=== PATIENT | female | born 1980 | race Caucasian/White ===

== ENCOUNTER 2016-03-11 08:34 | Emergency (ER) | payer OTHER ==
[2016-03-11 09:48] VITALS: BP 111/71
--- NOTE | 2016-03-11 09:57 | UC ---
Throat Pain/Nasal Krishna HPI - HPI Summary HPI Summary: SINUS PAIN AND PRESSURE X 7 DAYS + PND, NASAL CONGESTION, COUGH NO FEVER - History of Current Complaint Chief Complaint: UCGeneralIllness Stated Complaint: SINUS Time Seen by Provider: 03/11/16 09:36 Hx Obtained From: Patient Hx Last Menstrual Period: 03/06/16 ?: No Onset/Duration: Gradual Onset, Lasting Days - 7, Still Present Severity: Moderate Cough: Nonproductive Associated Signs & Symptoms: Positive: Sinus Discomfort, Nasal Discharge. Negative: Wheezing, Fever - Allergies/Home Medications Allergies/Adverse Reactions: Allergies Allergy/AdvReac Type Severity Reaction Status Date / Time Penicillins AdvReac Unknown Verified 10/13/15 08:16 Reaction Details PMH/Surg Hx/FS Hx/Imm Hx Endocrine History Of: Denies: Diabetes, Thyroid Disease Cardiovascular History Of: Denies: Cardiac Disorders, Hypertension Respiratory History Of: Denies: Asthma - Surgical History Surgical History: None - Family History Known Family History: Positive: None Negative: Diabetes - Social History Alcohol Use: Occasionally Substance Use Type: None Smoking Status (MU): Heavy Every Day Tobacco Smoker Type: Cigarettes Amount Used/How Often: 1/2 PPD Length of Time of Smoking/Using Tobacco: 22 Years Have You Smoked in the Last Year: Yes Household Exposure Type: Cigarettes Review of Systems Constitutional: Negative Skin: Negative Eyes: Negative ENT: Sore Throat, Ear Ache, Nasal Discharge Respiratory: Cough Cardiovascular: Negative Gastrointestinal: Negative Genitourinary: Negative All Other Systems Reviewed And Are Negative: Yes Physical Exam Triage Information Reviewed: Yes Appearance: Well-Appearing, No Pain Distress, Well-Nourished Vital Signs: Initial Vital Signs Temp 97.6 F 03/11/16 09:36 Pulse 60 03/11/16 09:36 Resp 16 03/11/16 09:36 BP 111/71 03/11/16 09:36 Pulse Ox 100 03/11/16 09:36 Vital Signs Reviewed: Yes Eyes: Positive: Conjunctiva Clear ENT: Positive: Normal ENT inspection, Hearing grossly normal, Pharyngeal erythema, Nasal congestion, Nasal drainage, TMs normal Neck: Positive: Supple, Nontender, No Lymphadenopathy Respiratory: Positive: Chest non-tender, Lungs clear, Normal breath sounds Cardiovascular: Positive: RRR, No Murmur, Pulses Normal Skin Exam: Normal Throat Pain/Nasal Course/Dx - Differential Dx/Diagnosis Provider Diagnoses: SINUSITIS Discharge - Discharge Plan Condition: Stable Disposition: HOME Prescriptions: Azithromycin TAB* [Zithromax TAB (Z-PATY) 250 mg #6 tabs] 2 tab PO .TODAY, THEN 1 DAILY #1 paty Patient Education Materials: Sinusitis (ED) Referrals: Gladys Thomas MD [Primary Care Provider] - If Needed
== END 2016-03-11 10:02 | disposition home or self-care (01) ==
LOC: UCCORT 08:34
DX: J32.9 Chronic sinusitis, unspecified (principal); Z88.0 Allergy status to penicillin; F17.210 Nicotine dependence, cigarettes, uncomplicated
CPT/HCPCS: 99212; G0463

== ENCOUNTER → 2017-01-12 10:47 | Emergency (ER) | payer OTHER ==
[~2017-01-12 10:47] MED LIST: Albuterol/Ipratropium NEB.SOL* Albuterol 2.5 MG/Ipratropium 0.5 MG 3 ML INH ONE
--- NOTE | 2017-01-12 11:25 | UC ---
FLU HPI - HPI Summary HPI Summary: 36 female presents to with complaints of productive cough, fever/chills, nausea, vomiting, ST, diarrhea, nasal congestion and feeling lousy for the past 3 days. States her son got her sick. Did not get flu shot this year. States she has been taking ibuprofen and tylenol cold/sinus with some relief, last dose around 2am. States fever was 100.3F yesterday. Nausea, vomiting diarrhea episodes yesterday. Patient is a smoker. No chest pain or difficulty breathing. No other complaints. No PMHx. - History of Current Complaint Chief Complaint: UCRespiratory Stated Complaint: FEVER,COUGH Time Seen by Provider: 01/12/17 10:57 Hx Obtained From: Patient Hx Last Menstrual Period: ~12/18/16 Onset/Duration: Sudden Onset, Lasting Days, Still Present, Worse Since Severity Currently: Mild Severity Initially: Moderate Pain Intensity: 4 Pain Scale Used: 0-10 Numeric Associated Signs & Symptoms: Positive: Fever, Cough, Sore Throat, Nasal Congestion, Headache, Vomiting, Diarrhea - Allergy/Home Medications Allergies/Adverse Reactions: Allergies Allergy/AdvReac Type Severity Reaction Status Date / Time Penicillins AdvReac Unknown Verified 01/12/17 11:03 Reaction Details Home Medications: Home Medications Ibuprofen TAB* [Advil TAB*] 400 mg PO Q6H PRN 01/12/17 [History Confirmed ] PMH/Surg Hx/FS Hx/Imm Hx - Additional Past Medical History Additional PMH: Denies DM and HTN - Surgical History Surgical History: None - Family History Known Family History: Positive: None Negative: Diabetes - Social History Alcohol Use: Occasionally Substance Use Type: None Smoking Status (MU): Heavy Every Day Tobacco Smoker Type: Cigarettes Amount Used/How Often: 1/2 PPD Length of Time of Smoking/Using Tobacco: Since Age 14 Have You Smoked in the Last Year: Yes Household Exposure Type: Cigarettes - Immunization History Most Recent Influenza Vaccination: September 2016 Review of Systems Constitutional: Fever, Chills, Fatigue ENT: Sore Throat, Nasal Discharge, Sinus Congestion Respiratory: Cough Cardiovascular: Negative Gastrointestinal: Vomiting, Diarrhea, Nausea Motor: Negative Musculoskeletal: Myalgia Neurological: Headache All Other Systems Reviewed And Are Negative: Yes Physical Exam Triage Information Reviewed: Yes Appearance: No Pain Distress, Well-Nourished, Ill-Appearing Vital Signs: Initial Vital Signs Temp 98 F 01/12/17 11:01 Pulse 70 01/12/17 11:01 Resp 16 01/12/17 11:01 BP 110/65 01/12/17 11:01 Pulse Ox 99 01/12/17 11:01 Vital Signs Reviewed: Yes Eyes: Positive: Conjunctiva Clear ENT: Positive: Normal ENT inspection, Hearing grossly normal, Pharyngeal erythema, Nasal congestion, Nasal drainage, TMs normal, Sinus tenderness, Other - post nasal drip noted. Negative: TM bulging, TM dull, Tonsillar swelling, Tonsillar exudate, Trismus, Muffled voice Dental: Positive: Cervical Lymphadenopathy. Negative: Percussion Tenderness @ Neck: Positive: Supple, Nontender, No Lymphadenopathy Respiratory: Positive: Chest non-tender, Lungs clear, Normal breath sounds, No respiratory distress, No accessory muscle use, Wheezing - diffuse, Other: - coughing throughout exam. Negative: Crackles, Rhonchi, Stridor Cardiovascular: Positive: RRR, No Murmur, Pulses Normal, Brisk Capillary Refill Abdomen Description: Positive: Nontender, Soft Bowel Sounds: Positive: Present Musculoskeletal: Positive: Strength Intact Neurological: Positive: Alert Skin Exam: Normal Re-Evaluation - Re-Evaluation First Eval Re-Evaluation Time: 12:15 Change: Improved - after duoneb, updated on lab results Flu Course/Dx - Course Course Of Treatment: rapid influneza obtained and negative. given duoneb had relief. chest xray obtained and was negative. will send home with z paty although may be viral patient's son diagnosed with pneumonia and has the same symptoms, encouraged BRAT diet. probiotics, increase fluid intake and get plenty of rest. tessalon pearls and inhaler as needed. mucinex. continue tylenol /ibu. follow up for re-check with pcp. aware of worsening signs and symptoms to watch out for. normal vitals. wheezing diffuse on PE exam. no known dirty water source containing legionella, has not traveled anywhere. azithromycin will cover legionella bacteria as well. - Differential Dx/Diagnosis Differential Diagnosis/HQI/PQRI: Bronchitis, Influenza, Pneumonia, Upper Respiratory Infection Provider Diagnoses: upper respiratory infection, bronchitis, diarrhea Discharge - Discharge Plan Condition: Stable Disposition: HOME Prescriptions: Albuterol HFA INHALER* [Ventolin HFA Inhaler*] 1 - 2 puff INH Q6H PRN #1 mdi PRN Reason: Sob/Wheezing Azithromycin TAB* [Zithromax TAB (Z-PATY) 250 mg #6 tabs] 2 tab PO .TODAY, THEN 1 DAILY #1 paty Benzonatate CAP* [Tessalon 100 MG CAP*] 100 mg PO TID #15 cap Patient Education Materials: Upper Respiratory Infection (ED), Acute Bronchitis (ED) Forms: *Work Release Referrals: Gladys Thomas MD [Primary Care Provider] - Additional Instructions: Take medication as prescribed. Also recommend mucinex OR continue tylenol cold/flu and fever. Use inhaler as needed for SOB/Wheezing. Tessalon pearls to help with coughing. [place] vapor rub on chest. Flonase for nasal congestion. BRAT diet (bananas, rice, applesauce, toast) to help with diarrhea. Increase water intake and get plenty of rest. Follow up with PCP to ensure improvement. Any new or worsening signs/symptoms please seek medical attention promptly.
[2017-01-12 11:46] VITALS: BP 110/65
--- NOTE | 2017-01-12 12:35 | RAD ---
Indication: Fever, cough. 2 views of the chest including dual energy PA views are reviewed. No mediastinal shift is noted. Heart is of normal size and configuration. Lung lilly show no pleural fluid, pneumonia or pneumothorax. IMPRESSION: No active cardiopulmonary disease is noted.
== END | disposition home or self-care (01) ==
LOC: UCCORT 10:47
DX: J06.9 Acute upper respiratory infection, unspecified (principal); J40 Bronchitis, not specified as acute or chronic; R19.7 Diarrhea, unspecified; Z72.0 Tobacco use
CPT/HCPCS: 71020; 87502; 99212; A9270-GY; G0463

== ENCOUNTER 2017-11-17 11:11 | Emergency (ER) | payer MEDICAID, OTHER ==
[2017-11-17] MEDS: Ketorolac INJ* 30 MG/ML 1 ML VIAL IM ONE (13:19)
--- NOTE | 2017-11-17 13:26 | UC ---
Complaint Female HPI - HPI Summary HPI Summary: The patient is a 37-year-old female that presents here with the onset of left pelvic pain that started up yesterday. Her symptoms yesterday were very mild. Today things got severe. Worsens with movement. Landed comfortable position. She states that she has had numerous ovarian cysts in the past. She states that this feels similar to this when she has had cyst ruptures. She has no UTI symptoms. He has no fever or chills. He denies any nausea vomiting or diarrhea. She has not taken anything for pain today. Denies any vaginal discharge or itching. She denies any history of PID. - History Of Current Complaint Chief Complaint: UCAbdominalPain Stated Complaint: LOWER LEFT ABD PAIN Time Seen by Provider: 11/17/17 13:08 Hx Obtained From: Patient Hx Last Menstrual Period: 11/03/17 Onset/Duration: Gradual Onset, Lasting Hours, Worse Since - this AM Timing: Constant Severity Initially: Mild Severity Currently: Moderate Pain Intensity: 6 - severe at times Pain Scale Used: 0-10 Numeric Character: Sharp, Cramping Aggravating Factor(s): Movement Alleviating Factor(s): Position Associated Signs And Symptoms: Positive: Back Pain. Negative: Fever, Vaginal Bleeding/Discharge, Vaginal Discharge, Nausea, Vomiting(# Of Episodes =), Genital Swelling, Genital Blisters, Retained Foregin Body (Specify) - Allergies/Home Medications Allergies/Adverse Reactions: Allergies Allergy/AdvReac Type Severity Reaction Status Date / Time Penicillins AdvReac "Doesn't Verified 11/17/17 11:51 work on me..." Home Medications: Home Medications Norgestimate-Ethinyl Estradiol [Trinessa Tablet] 1 each PO BEDTIME 11/17/17 [ History Confirmed 11/17/17] Venlafaxine TAB (NF) [Effexor TAB (NF)] 25 mg PO BEDTIME 11/17/17 [History Confirmed 11/17/17] PMH/Surg Hx/FS Hx/Imm Hx Previously Healthy: Yes - Surgical History Surgical History: None - Family History Known Family History: Positive: Hypertension Negative: Diabetes - Social History Alcohol Use: Weekly Substance Use Type: Marijuana Substance Use Comment - Amount & Last Used: Weekly & 11/11/17 Smoking Status (MU): Heavy Every Day Tobacco Smoker Type: Cigarettes Amount Used/How Often: 1/2 PPD Length of Time of Smoking/Using Tobacco: Since Age 17 Have You Smoked in the Last Year: Yes Household Exposure Type: Cigarettes - Immunization History Most Recent Influenza Vaccination: September 2016 Review of Systems Constitutional: Negative Skin: Negative Eyes: Negative ENT: Negative Respiratory: Negative Cardiovascular: Negative Gastrointestinal: Negative Genitourinary: Negative Motor: Negative Neurovascular: Negative Musculoskeletal: Negative Neurological: Negative Psychological: Negative Is Patient Immunocompromised?: No All Other Systems Reviewed And Are Negative: Yes Physical Exam Triage Information Reviewed: Yes Appearance: Well-Appearing, Pain Distress, Thin Vital Signs: Initial Vital Signs Temp 99.1 F 11/17/17 11:47 Pulse 82 11/17/17 11:47 Resp 18 11/17/17 11:47 BP 108/61 11/17/17 11:47 Pulse Ox 98 11/17/17 11:47 Vital Signs Reviewed: Yes Eyes: Positive: Conjunctiva Clear ENT: Positive: Normal ENT inspection, Hearing grossly normal. Negative: Pharyngeal erythema, Nasal congestion, Nasal drainage, Tonsillar swelling, Tonsillar exudate, Trismus, Muffled voice, Hoarse voice Neck: Positive: Supple, Nontender, No Lymphadenopathy Respiratory: Positive: Lungs clear, Normal breath sounds, No respiratory distress, No accessory muscle use Cardiovascular: Positive: RRR, No Murmur, Pulses Normal. Negative: Tachycardia , Bradycardia Abdomen Description: Positive: Nontender, No Organomegaly, Soft. Negative: CVA Tenderness (R), CVA Tenderness (L) Bowel Sounds: Positive: Present Pelvic Exam: Positive: External Exam Normal, Discharge - whitish/slightly curdy , Tender w/ Cervical Motion - mild CMT, Tender Adnexa - Left, Other - speculum and bimanual exam done by Benita Soto GAS JOCKEY per patients request Musculoskeletal: Positive: ROM Intact, No Edema Neurological: Positive: Alert Psychological Exam: Normal Skin Exam: Normal Diagnostics - Radiology No standard instances Xray Interpretation: Positive (See Comments) - #. 1.7 cm follicular cyst of the RIGHT ovary without concern. #. 2.1 cm probable hemorrhagic cyst of the LEFT ovary. This represents a very low suspicion lesion given small size. If clinically indicated this low suspicion finding could be reassessed with ultrasound in 1-2 menstrual cycles. #. Physiologic small volume of free fluid in the cul-de-sac Radiology Interpretation Completed By: Radiologist JUAN Lau Dx - Differential Dx/Diagnosis Provider Diagnoses: left hemorrhagic ovarian cyst Discharge - Sign-Out/Discharge Documenting (check all that apply): Patient Departure All imaging exams completed and their final reports reviewed: Yes - Discharge Plan Condition: Stable Disposition: HOME Prescriptions: Ibuprofen TAB* [Motrin TAB*] 600 mg PO QID #40 tab Patient Education Materials: Ovarian Cyst (ED) Forms: *Work Release Referrals: Gladys Thomas MD [Primary Care Provider] - 4 Days (if not better ) Additional Instructions: you have a hemorrhagic left ovarian cyst The radiologist has suggested you get a repeat ultrasound in 2-3 mos recheck for new or worsening symptoms - Billing Disposition and Condition Condition: STABLE Disposition: Home
--- NOTE | 2017-11-17 14:11 | RAD ---
Indication: LEFT side pelvic pain. Comparison: October 14, 2010 Technique: Transvaginal pelvic ultrasound. Report: 7.3 x 4.7 x 5.2 cm unremarkable retroverted uterus with 4.3 mm endometrium. Physiologic small volume of free fluid in the cul-de-sac. 3.8 x 2.0 x 2.3 cm RIGHT ovary with documented vascular flow is remarkable for a 1.7 cm maximum dimension unilocular grossly simple cyst consistent with a follicular cyst without concern. 3.3 x 1.8 x 2.3 cm LEFT ovary with documented vascular flow is remarkable for a 2.1 x 1.0 x 1.0 cm moderately well-circumscribed hypoechoic but not anechoic avascular lesion most suspicious for a hemorrhagic cyst. No visualized extra ovarian adnexal region lesions evident. Mildly prominent parametrial veins noted in the LEFT adnexal region. IMPRESSION: #. 1.7 cm follicular cyst of the RIGHT ovary without concern. #. 2.1 cm probable hemorrhagic cyst of the LEFT ovary. This represents a very low suspicion lesion given small size. If clinically indicated this low suspicion finding could be reassessed with ultrasound in 1-2 menstrual cycles. #. Physiologic small volume of free fluid in the cul-de-sac.
[2017-11-17 14:17] VITALS: BP 100/56
--- NOTE | 2017-11-19 08:32 | UC ---
- Progress Note Progress Note: patient found to have gardnarella vaginitis . called and left message. started flagyl one time dose of 2 gms Discharge - Sign-Out/Discharge Documenting (check all that apply): Patient Departure All imaging exams completed and their final reports reviewed: No Studies - Discharge Plan Condition: Stable Disposition: HOME Prescriptions: Ibuprofen TAB* [Motrin TAB*] 600 mg PO QID #40 tab Patient Education Materials: Ovarian Cyst (ED) Forms: *Work Release Referrals: Gladys Thomas MD [Primary Care Provider] - 4 Days (if not better ) Additional Instructions: you have a hemorrhagic left ovarian cyst The radiologist has suggested you get a repeat ultrasound in 2-3 mos recheck for new or worsening symptoms - Billing Disposition and Condition Condition: STABLE Disposition: Home
== END 2017-11-17 14:35 | disposition home or self-care (01) ==
LOC: UCCORT 11:11
DX: N83.202 Unspecified ovarian cyst, left side (principal); Z88.0 Allergy status to penicillin; F17.210 Nicotine dependence, cigarettes, uncomplicated
CPT/HCPCS: 76830; 81003; 84702; 87086; 87480; 87491; 87510; 87591; 87661; 99212; G0463; J1885

== ENCOUNTER 2018-05-20 16:58 | Emergency (ER) | payer MEDICAID, OTHER ==
--- OUTSIDE RECORDS SUMMARY | 2018-05-20 17:06 | XMS REPORT | Continuity of Care Document ---
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 Active Onset: 05/06/2017 Acute stress disorder Gladys Thomas M.D. Active Onset: 05/06/2017 Acute sinusitis Gladys Thomas M.D. Active Onset: 05/01/2010 Chondromalacia of patella Luis Manuel Farooq MD, FACS Resolved Resolved: 01/14/2015 Onset: 06/01/2010 Arthralgia of the lower leg Luis Manuel Farooq MD, FACS Resolved Resolved: 01/14/2015 Onset: 09/23/2011 Gastroesophageal reflux disease Marina Hernadez FNP Resolved Resolved: 01/14/2015 Onset: 09/23/2011 Contraception care management Wickert, Marina, [employer] Resolved Resolved: 01/14/2015 Family History Date Family Member(s) Observation Comments General Non Contributory Father 55 Mother 58 Siblings 1 Social History Type Date Description Comments Sex Unknown Marital Status Patient is Lives With Sons Lives With Boyfriend 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 Tobacco Use Start: Unknown currently smokes 1/2 Pack Daily ETOH Use Occasionally consumes alcohol Recreational Drug Use Denies Drug Use Tobacco Use Start: Unknown Heavy tobacco smoker (more than 10 cigarettes/day) Smoking Status Reviewed: 04/25/18 Heavy tobacco smoker (more than 10 cigarettes/day) Enjoy Exercising Patient enjoys exercising Tattoo/Piercing Tattoo right lower leg, lower back, between should blades Tattoo/Piercing Pierced ears Currently Active Patient is currently sexually active Age 1st [place] 15 Years Old # Partners in a Lifetime 8 # Partners in a Lifetime Has been with current partner for 2 years Allergies, Adverse Reactions, Alerts Date Description Reaction Status Severity Comments 02/24/2018 Penicillin Active states "doesn't work" 05/01/2010 NKDA Inactive 01/14/2015 NKDA Inactive Medications Medication Date Status Form Strength Qnty SIG Indications Ordering Provider Trazodone HCL 04/25 Active Tablets 50mg 30tab 1-2 by F41.1 s mouth every Kimberlee, night at [facility] bedtime as [employer], needed Ibclc Alprazolam 03/28 Active Tablets 0.5mg 90tab 1 tab every F41.1 s 8 hours as Kimberlee, osbaldo [facility] Reference [employer], #: [id number] Ibclc Tri-Linyah 02/09 Active Tablets 0.18/0.21 28tab Take One 5/0.25 s Tablet By Kimberlee, mg-35 mcg Mouth Every [facility]-, Day [employer], Ibclc Motrin Ib Active Tablets 200mg 2 prn Flonase Active 1 spray each nare prn Claritin Active Capsules 10mg 1 by mouth Unknown as needed otc Amoxicillin 05/06 Hx Tablets 500mg 20tab 1 tab by J01.90 Martha s mouth twice Gladys, - a day x 10 M.D. Venlafaxine HCL 02/02 Hx Caps ER 75mg 30cap 1 by mouth F43.0 Martha, 24HR s every day Jaziel Graham M.D. 03/28 Venlafaxine HCL 01/26 Hx Tablets ER 75mg 30tab 1 tab PO Q F43.0 Martha, 24HR s daily Jaziel Graham M.D. 02/02 Venlafaxine HCL 07/28 Hx Caps ER 75mg 30cap 1 by mouth F43.0 Martha, 24HR s every day Jaziel Graham M.D. 01/26 Claritin 06/14 Hx Capsules 10mg 30cap 1 by mouth Coby, s every day Jaziel Mohan PNP-, 05/06 [employer] Ibclc Docusate Sodium 04/07 Hx Capsules 100mg 60cap 1 cap PO K59.00 Martha s bid Jaziel Graham M.D. 10/07 Venlafaxine HCL 03/04 Hx Caps ER 37.5mg 30cap 1 by mouth F43.0 Martha, 24HR s every day Jaziel Graham M.D. 07/28 Trazodone HCL 07/09 Hx Tablets 50mg 60tab 1-2 at [place], s bedtime as Madalyn roblero MD 08/11 Citalopram 07/09 Hx Tablets 20mg 30tab 1 by mouth [place], Hydrobromide s every day Madalyn Sheriff MD 03/04 Trinessa (28) 07/07 Hx Tablets 0.18/0.21 28tab take one Coby 5/0.25 s tablet by Jaziel Mohan mg-35 mcg mouth every PNP-BC, 02/09 day [employer] Ibclc Fluticasone 02/26 Hx Suspension 50mcg/Act 1bott 1 spray to J30.9 Martha, Propionate le each Gladys, - nostril M.D. 03/04 intranasal once daily Pseudoephedrine 01/14 Hx Tablets 60mg 14tab 60 mg by J06.9 Martha s mouth every Gladys, - 6 hours as M.DGustavo 06/28 needed, 240mg/24h Guaifenesin 01/14 Hx Tablets 400mg 30tab 1 tab by J06.9 s mouth every Gladys, - 4 hours as M.DGustavo 08/11 cough Ortho Tri-Cyclen 05/28 Hx Tablets 0.18/0.21 28tab take one Montemayor, ( 5/0.25 s tablet by Madalyn - mg-35 mcg mouth every MD Tri-Sprintec 06/13 Hx Tablets 28tab Take One s Tablet By Madalyn - Mouth Every , Ibuprofen Hx Tablets 800mg 30tab 1 po q6h Unknown /0000 s prn pain - 09/02 Vicodin Hx Tablets 5-500mg 42tab 1-2 po q4h Unknown /0000 s prn - 07/13 Alprazolam Hx Tablets 1mg po q8h prn Unknown /0000 - 07/09 Medications Administered in Office Medication Date Status Form Strength Qnty SIG Indications Ordering Provider PPD Administered Injection Gladys Thomas, 5 Jessie Immunizations CPT Code Status Date Vaccine Lot # [id number] Given 12/04/2012 Tdap injection 68398 Given 12/04/2012 flu vaccination 38281 Given 11/04/2012 flu vaccination 10477 Given 11/04/2009 flu vaccination Vital Signs Date Vital Result Comment 04/25/2018 4:46pm BP Systolic 114 mmHg BP Diastolic 68 mmHg Body Temperature 98.0 F Heart Rate 72 /min Respiratory Rate 17 /min Height 65 inches 5'5" Weight 163.00 lb BMI (Body Mass Index) 27.1 kg/m2 BSA (Body Surface Area) 1.81 m2 [place] body weight in kilograms 57 kg 03/28/2018 3:49pm BP Systolic Sitting Right Arm 122 mmHg BP Diastolic Sitting Right Arm 76 mmHg Body Temperature 97.1 F Heart Rate 88 /min Respiratory Rate 18 /min Height 65 inches 5'5" Weight 155.00 lb BMI (Body Mass Index) 25.8 kg/m2 BSA (Body Surface Area) 1.78 m2 [place] body weight in kilograms 57 kg O2 % BldC Oximetry 98 % 02/24/2018 1:22pm BP Systolic Sitting Right Arm 122 mmHg BP Diastolic Sitting Right Arm 62 mmHg Body Temperature 99.1 F Heart Rate 73 /min Weight 158.38 lb O2 % BldC Oximetry 98 % 11/17/2017 12:00am BP Systolic 100 mmHg BP Diastolic 56 mmHg Body Temperature 98.1 F Heart Rate 58 /min Respiratory Rate 14 /min Height 65 inches Weight 130.00 lb BMI (Body Mass Index) 21.6 kg/m2 O2 % BldC Oximetry 99 % 10/07/2017 3:17pm BP Systolic Sitting Right Arm 116 mmHg BP Diastolic Sitting Right Arm 58 mmHg Body Temperature 97.4 F Heart Rate 70 /min Weight 156.12 lb O2 % BldC Oximetry 9611 % 05/06/2017 10:33am BP Systolic 104 mmHg BP Diastolic 64 mmHg Body Temperature 97.0 F Heart Rate 76 /min Height 66 inches 5'6" Weight 167.00 lb BMI (Body Mass Index) 27.0 kg/m2 BSA (Body Surface Area) 1.85 m2 [place] body weight in kilograms 59 kg 01/26/2017 11:15am BP Systolic Sitting Left Arm 114 mmHg BP Diastolic Sitting Left Arm 72 mmHg Body Temperature 98.0 F Height 66 inches 5'6" Weight 159.25 lb BMI (Body Mass Index) 25.7 kg/m2 BSA (Body Surface Area) 1.82 m2 [place] body weight in kilograms 59 kg 08/10/2016 3:44pm BP Systolic 104 mmHg BP Diastolic 61 mmHg Body Temperature 98.1 F Heart Rate 64 /min Height 66 inches 5'6" Weight 163.00 lb BMI (Body Mass Index) 26.3 kg/m2 BSA (Body Surface Area) 1.83 m2 [place] body weight in kilograms 59 kg 07/28/2016 3:40pm BP Systolic Sitting Left Arm 120 mmHg BP Diastolic Sitting Left Arm 74 mmHg Height 66 inches 5'6" Weight 165.50 lb BMI (Body Mass Index) 26.7 kg/m2 BSA (Body Surface Area) 1.85 m2 [place] body weight in kilograms 59 kg 04/07/2016 11:17am BP Systolic Sitting Left Arm 124 mmHg BP Diastolic Sitting Left Arm 76 mmHg Height 66 inches 5'6" Weight 164.25 lb BMI (Body Mass Index) 26.5 kg/m2 BSA (Body Surface Area) 1.84 m2 [place] body weight in kilograms 59 kg Last Menstrual Period [id number] 03/04/2016 2:34pm BP Systolic Sitting Left Arm 122 mmHg BP Diastolic Sitting Left Arm 70 mmHg Height 66 inches 5'6" Weight 166.00 lb BMI (Body Mass Index) 26.8 kg/m2 BSA (Body Surface Area) 1.85 m2 [place] body weight in kilograms 59 kg 08/12/2015 1:16pm BP Systolic Sitting Left Arm 102 mmHg BP Diastolic Sitting Left Arm 64 mmHg Height 66 inches 5'6" Weight 158.56 lb BMI (Body Mass Index) 25.6 kg/m2 BSA (Body Surface Area) 1.81 m2 [place] body weight in kilograms 59 kg 07/10/2015 3:37pm BP Systolic Sitting Left Arm 106 mmHg BP Diastolic Sitting Left Arm 70 mmHg Height 66 inches 5'6" Weight 160.00 lb BMI (Body Mass Index) 25.8 kg/m2 BSA (Body Surface Area) 1.82 m2 [place] body weight in kilograms 59 kg Last Menstrual Period [id number] 02/26/2015 3:26pm BP Systolic 108 mmHg BP Diastolic 68 mmHg Body Temperature 98.3 F Height 66 inches 5'6" Weight 151.00 lb BMI (Body Mass Index) 24.4 kg/m2 BSA (Body Surface Area) 1.77 m2 01/14/2015 10:10am BP Systolic 108 mmHg BP Diastolic 62 mmHg Body Temperature 97.8 F Height 66 inches 5'6" Weight 148.38 lb BMI (Body Mass Index) 23.9 kg/m2 BSA (Body Surface Area) 1.76 m2 Last Menstrual Period [id number] 12/19/2013 2:10pm BP Systolic 106 mmHg BP Diastolic 64 mmHg Height 66 inches 5'6" Weight 158.00 lb 09/27/2013 1:28pm BP Systolic 106 mmHg BP Diastolic 68 mmHg Height 66 inches 5'6" Weight 161.00 lb 07/26/2013 10:51am BP Systolic 90 mmHg BP Diastolic 62 mmHg Heart Rate 68 /min Height 66 inches 5'6" Weight 160.00 lb 06/25/2013 6:53pm BP Systolic 114 mmHg BP Diastolic 70 mmHg Height 66 inches 5'6" Weight 161.00 lb 06/13/2013 6:35pm BP Systolic 106 mmHg BP Diastolic 70 mmHg Height 66 inches 5'6" Weight 169.00 lb 02/22/2013 7:23pm BP Systolic 102 mmHg BP Diastolic 70 mmHg Height 66 inches 5'6" Weight 176.00 lb 05/08/2012 9:54am BP Systolic 98 mmHg BP Diastolic 70 mmHg Height 66 inches 5'6" Weight 155.00 lb 04/10/2012 10:08am BP Systolic 86 mmHg BP Diastolic 58 mmHg Height 66 inches 5'6" Weight 155.00 lb 03/16/2012 11:53am BP Systolic 98 mmHg BP Diastolic 66 mmHg Height 66 inches 5'6" Weight 149.00 lb 09/23/2011 3:49pm BP Systolic 112 mmHg BP Diastolic 62 mmHg Body Temperature 98.0 F Height 66 inches 5'6" Weight 144.00 lb 03/19/2011 2:11pm BP Systolic 94 mmHg BP Diastolic 66 mmHg Heart Rate 76 /min Height 66 inches 5'6" Weight 141.00 lb 12/11/2010 2:24pm BP Systolic Sitting Left Arm 99 mmHg BP Diastolic Sitting Left Arm 66 mmHg Heart Rate 81 /min Respiratory Rate 12 /min Last Menstrual Period [id number] 05/01/2010 9:42am Height 66 inches 5'6" Weight 142.00 lb BMI (Body Mass Index) 22.9 kg/m2 Results Test Date Facility Test Result H/L Range Note Laboratory test [facility] Gardnerella/Yeas SEE RESULT 1, 2 finding 7 [phone] t: Vaginal Dna BELOW GC/Chlamydia [facility] Chlamydia Negative Negative Amplified Rna 8 [phone] trachomatis Rna Neisseria gonorrhoeae (GC) Rna Negative Negative Laboratory test 11/17/2017 [facility] Trichomonas Negative Negative 3 finding [phone] vaginalis Rna Laboratory test 11/17/2017 [facility] Poc , Negative Negative 4 finding [phone] Urine Poc Urinalysis 11/17/2017 [facility] Poc Glucose, Negative Negative [phone] Urine Poc Bilirubin, Urine 1+ Abnormal Negative Poc Ketone, Urine Trace Abnormal Negative Poc Specific [place], Urine 1.020 N 1.010-1.030 Poc Blood, Urine Negative Negative Poc pH, Urine 7.5 N 5-9 Poc Protein, Urine 1+ Abnormal Negative Poc Urobilinogen, Urine 1.0 Negative Poc Nitrite, Urine Negative Negative Poc Leukocytes, Urine Trace Abnormal Negative Poc Color, Urine Dark yellow Poc Clarity, Urine Slightly Cloudy 5 Laboratory Studies 11/17/2017 [facility] Import Bedside Urine 1.020 1.010- 1.030 Specific [place] (Lab Bedside Urine Urobilinogen (Lab) 1.0 Bedside Urine pH (Lab) 7.5 5-9 Urine Culture And 11/17/2017 [facility] Urine SEE RESULT 6, 7 Sensitivities [phone] Culture BELOW Laboratory test 06/01/2017 [facility] Troponin-I < 0.015 8, [address] ng/mL [place], [place] [id number] [phone] Rapid Influenza A 01/12/2017 [facility] Influenza A NEGATIVE Negative 10 & B Molecular [phone] Molecular Influenza B Molecular NEGATIVE Negative CBC W/Automated Diff 07/10/2015 [facility] White Blood 7.7 K/uL 3.1-10.[address] [place] [address] [phone] Red Blood Count 4.41 M/uL 3.90-5.40 Hemoglobin 14.1 gm/dL 11.6-15.8 Hematocrit 41.2 % 36.0-46.1 Mean Cell Volume 93.4 fl 80.9-99.0 Mean Corpuscular HGB 32.0 pg 25.9-32.7 Mean Corpuscular HGB Conc 34.2 g/dL 30.8-34.3 Platelet Count 310 K/uL 155-360 Red Cell Distri Width SD 41.3 fl 3-47 Red Cell Distri Width %CV 12.4 % 11.7-14.4 Mean Platelet Volume 10.4 fL 8.9-12.4 Neut% 58.9 % 40.4-72.8 Lymph % 31.8 % 17.0-46.1 [place] % 8.2 % 4.3-13.2 Eo% 0.7 % 0.0-6.6 Bas% 0.4 % 0.0-1.1 Neut# 4.51 K/uL 1.8-7.0 Lymph # 2.43 K/uL 1.8-7.0 [place] # 0.63 K/uL 0.3-0.9 Eos # 0.05 K/uL 0.0-0.5 Baso # 0.03 K/uL 0.0-0.1 Laboratory test 07/10/2015 [facility] TSH Reflex 0.59 uIU/mL 0.30-4.[address] FT4 and/or [place] [address] FT3 [phone] Basic Metabolic 07/10/2015 [facility] Glucose 72 mg/dL Low 74-[address] [place] [address] [phone] BUN 13 mg/dL 7-18 Creatinine 0.7 mg/dL 0.6-1.3 Glom Filtration Rate, Estimate >60 mL/min >60 If >60 mL/min >60 12 BUN/Creat 18.5 ratio Sodium 139 mmol/L 136-145 Potassium 3.6 mmol/L 3.5-5.1 Chloride 104 mmol/L 98-107 Carbon Dioxide 27 mmol/L 21-32 Anion Gap 8 mEq/L 8-16 Calcium 9.0 mg/dL 8.5-10.1 Rapid 05/10/2015 [facility] Influenza A POSITIVE Abnormal Negative 13 Influenza A & [phone] Molecular B Molecular Influenza B Molecular NEGATIVE N Negative Laboratory test 02/26/2015 [facility] Cytopathology Results on [address] Cervix/[place] [address] [phone] Laboratory test 11/12/2014 [facility] Rapid Influenza A SEE RESULT 15 finding [phone] & B Antigen BELOW Laboratory test 01/22/2014 [facility]N/[facility] Import Bas% 0.4 % 0.0-1 finding .1 Baso # 0.03 K/uL 0.0-0.1 CK 74 U/L 26-192 Eo% 0.5 % 0.0-6.6 Eos # 0.04 K/uL 0.0-0.5 Hematocrit 40.8 % 36.0-46.1 Hemoglobin 14.5 gm/dL 11.6-15.8 Lymph # 2.49 K/uL 0.8-3.4 Lymph % 29.3 % 17.0-46.1 Mean Cell Volume 93.2 fl 80.9-99.0 Mean Corpuscular HGB 33.1 pg High 25.9-32.7 Mean Corpuscular HGB Conc 35.5 g/dL High 30.8-34.3 Mean Platelet Volume 9.9 fL 8.9-12.4 [place] # 0.45 K/uL 0.3-0.9 [place] % 5.3 % 4.3-13.2 Neut# 5.49 K/uL 1.0-7.0 Neut% 64.5 % 40.4-72.8 Platelet Count 304 K/uL 155-360 Red Blood Count 4.38 M/uL 3.90-5.40 Red Cell Distri Width %CV 11.8 % 11.7-14.4 Red Cell Distri Width SD 39.6 fl 3-47 Troponin-I < 0.02 ng/mL 16 White Blood Count 8.5 K/uL 3.1-10.7 Comprehensive Metabolic Panel 01/22/2014 [facility] Import Alb/Glob 1.0 ratio Albumin 3.5 g/dL 3.4-5.0 Alkaline Phosphatase 51 U/L 45-117 Anion Gap 11 mEq/L 8-16 BUN 12 mg/dL 7-18 BUN/Creat 17.1 ratio Bilirubin,Total 0.3 mg/dL 0.2-1.0 Calcium 8.9 mg/dL 8.5-10.1 Carbon Dioxide 24 mmol/L 21-32 Chloride 108 mmol/L High 98-107 Creatinine 0.7 mg/dL 0.6-1.3 Globulin 3.5 g/dL 1.9-4.3 Glom Filtration Rate, Estimate >60 mL/min >60 Glucose 83 mg/dL 74-106 If >60 mL/min >60 17 Potassium 3.3 mmol/L Low 3.5-5.1 SGPT/Alt 18 U/L 12-78 Sgot/Ast 9 U/L Low 15-37 18 Sodium 140 mmol/L 136-145 Total Protein 7.0 g/dL 6.4-8.2 Chlamydia/GC Pati 09/27/2013 [facility] Import Chlamydia Negative Negative Trachomatis, Pati Neisseria Gonorrhoeae, Pati Negative Negative Please note: See Note 19 Laboratory test 09/27/2013 [facility] Import ThinPrep Pap: See Note 20 finding Cervix/Endocx Laboratory test 08/07/2013 [facility] Import TSH (Thyroid 0.43 IU/mL 0.34- 5. finding Stimulating Horm) 60 Vitamin B12 456 pg/mL 180-914 21 CBC Auto Diff 08/07/2013 [facility] Import Abs Basophils 0 10^3/uL 0-0.2 Abs Eosinophils 0.1 10^3/uL 0-0.6 Abs Lymphocytes 1.9 10^3/uL 1.0-4.8 Abs Monocytes 0.4 10^3/uL 0-0.8 Abs Neutrophils 4.5 10^3/uL 1.5-7.7 Abs Nucleated RBC 0.01 10^3/uL Basophil % 0.6 % 0-2 Eosinophil % 1.5 % 0-6 Granulocyte % 64.7 % 38-83 Hematocrit 41 % 35-47 Hemoglobin 13.9 g/dL 12.0-16.0 Lymphocyte % 27.6 % 25-47 Mean Corpuscular HGB Conc 34 g/dL 31-36 Mean Corpuscular Hemoglobin 32 pg High 27-31 Mean Corpuscular Volume 94 fL 80-97 Mean Platelet Volume 8 um3 7.4-10.4 Monocyte % 5.6 % 1-9 Nucleated Red Blood Cells % 0.1 Platelet Count 274 10^3/uL 150-450 Red Blood Count 4.32 10^6/uL 4.0-5.4 Red Cell Distribution Width 13 % 10.5-15 White Blood Count 7.0 10^3/uL 4.8-10.8 Comp Metabolic Panel 08/07/2013 [facility] Import Albumin 4.3 g/dL 3.2-5.2 Albumin/Globulin Ratio 1.9 1-3 Alkaline Phosphatase 44 U/L 34-104 Alt 13 U/L 7-52 Anion Gap 5 mmol/L 2-11 Ast 13 U/L 13-39 BUN/Creatinine Ratio 20.0 8-20 Blood Urea Nitrogen 16 mg/dL 6-24 Calcium 9.3 mg/dL 8.6-10.3 Chloride 106 mmol/L 101-111 Co2 Carbon Dioxide 28 mmol/L 22-32 Creatinine 0.80 mg/dL 0.51-0.95 Egfr 105.6 >60 22 Egfr Non- 82.1 >60 Globulin 2.3 g/dL 2-4 Glucose 80 mg/dL 70-100 Potassium 3.8 mmol/L 3.7-5.6 Sodium 139 mmol/L 133-145 Total Bilirubin 0.40 mg/dL 0.2-1.0 Total Protein 6.6 g/dL 6.4-8.9 Laboratory test finding 06/16/2013 N2N/[facility]D Import Bas% 0.3 % 0.0-1.1 Baso # 0.03 K/uL 0.0-0.1 Eo% 0.5 % 0.0-6.6 Eos # 0.05 K/uL 0.0-0.5 Free T4 0.96 ng/dL 0.71-1.85 Hematocrit 41.1 % 36.0-46.1 Hemoglobin 14.6 gm/dL 11.6-15.8 Lymph # 2.29 K/uL 0.8-3.4 Lymph % 22.1 % 17.0-46.1 Mean Cell Volume 92.8 fl 80.9-99.0 Mean Corpuscular HGB 33.0 pg High 25.9-32.7 Mean Corpuscular HGB Conc 35.5 g/dL High 30.8-34.3 Mean Platelet Volume 9.9 fL 8.9-12.4 [place] # 0.86 K/uL 0.3-0.9 [place] % 8.3 % 4.3-13.2 Neut# 7.11 K/uL High 1.0-7.0 Neut% 68.8 % 40.4-72.8 Platelet Count 234 K/uL 155-360 Rapid Plasma Reagin Nonreactive Nonreactive 23 Red Blood Count 4.43 M/uL 3.90-5.40 Red Cell Distri Width %CV 11.8 % 11.7-14.4 Red Cell Distri Width SD 39.3 fl 3-47 Thyroid Stim Hormone 1.59 uIU/mL 0.49-4.67 White Blood Count 10.3 K/uL 3.1-10.7 Comprehensive Metabolic Panel 06/16/2013 [facility]N/[facility] Import Alb/Glob 1.3 ratio Albumin 4.1 g/dL 3.5-5.0 Alkaline Phosphatase 65 U/L 50-136 Anion Gap 12 mEq/L 8-16 BUN 15 mg/dL 5-23 BUN/Creat 21.4 ratio Bilirubin,Total 0.5 mg/dL 0.2-1.2 Calcium 8.9 mg/dL 8.5-10.1 Carbon Dioxide 25 mEq/L 18-29 Chloride 107 mmol/L 98-107 Creatinine 0.7 mg/dL 0.5-1.4 Globulin 3.1 g/dL 1.9-4.3 Glom Filtration Rate, Estimate >60 mL/min >60 Glucose 86 mg/dL 76-115 If >60 mL/min >60 24 Potassium 3.6 mmol/L 3.5-5.1 SGPT/Alt 21 U/L Low 30-65 Sgot/Ast 14 U/L Low 16-40 Sodium 140 mmol/L 136-145 Total Protein 7.2 g/dL 6.3-8.0 LDL Cholesterol Profile 06/16/2013 [facility] Import Cholesterol 143 mg/dL 120-200 HDL Cholesterol 66 mg/dL 29-83 LDL-Cholesterol 68 mg/dL 62-185 Triglycerides 45 mg/dL 16-231 Laboratory test 06/16/2013 [facility] Import Amphetamines (Urine) Negative finding Barbiturates (Urine) Negative Benzodiazepines (Urine) Negative Cannabinoids (Urine) Positive High Cocaine Metabolite (Urine) Negative Methadone (Urine) Negative Opiates (Urine) Negative Please Note # 25 Urine Cutoffs * 26 Laboratory test 06/16/2013 [facility] Import Ethyl Alcohol < 3.0 mg/dL 0.0 - finding Laboratory test 01/08/2013 [facility] Import Rapid Plasma Nonreactive 27 finding Reagin Nonreactive Type And Screen See Note 28 CBC 01/08/2013 [facility] Import Hematocrit 41.0 % 36.0-46.1 Hemoglobin 14.5 gm/dL 11.6-15.8 Mean Cell Volume 92.1 fl 80.9-99.0 Mean Corpuscular HGB 32.6 pg 25.9-32.7 Mean Corpuscular HGB Conc 35.4 g/dL High 30.8-34.3 Mean Platelet Volume 10.0 fL 8.9-12.4 Platelet Count 307 K/uL 155-360 Red Blood Count 4.45 M/uL 3.90-5.40 Red Cell Distri Width %CV 13.7 % 11.7-14.4 White Blood Count 14.9 K/uL High 3.1-10.7 Type And Screen 01/08/2013 [facility] Import Antibody Screen Negative Patient Blood Type O Pos Laboratory test 12/04/2012 [facility] Import Vaginal Strep See Note 29 finding Screen Chlamydia/GC Pati 12/04/2012 [facility] Import Chlamydia Negative Negative Trachomatis, Pati Neisseria Gonorrhoeae, Pati Negative Negative Please note: See Note 30 Laboratory test 10/19/2012 N2N/[facility] Import 3 Hour GTT See Note 31 finding Laboratory test 10/18/2012 [facility] Import Culture If Indicated See Note 32 finding Comment Urine Culture See Note 33 Urine Screen See Note 34 Urinalysis With 10/18/2012 [facility] Import Urine Bacteria Moderate None High Microscopic Seen Urine Bilirubin - Dipstick Negative Negative Urine Blood Negative Negative Urine Calcium Oxalate Crystals Few None Seen Urine Clarity Clear Clear Urine Color Yellow Yellow Urine Epithelial Cells Few None Seen /lpf Urine Glucose - Dipstick Negative mg/dL Negative Urine Ketone Negative mg/dL Negative Urine Leuk Esterase Negative Negative Urine Nitrite - Dipstick Positive High Negative Urine PH 6.0 Low 6.5-7.5 Urine Protein - Dipstick Negative mg/dL Negative Urine RBC None Seen rbc/hpf 0-7 Urine Specific [place] 1.020 1.010-1.030 Urine Urobilinogen - Dipstick 0.2 E.U./dL 0.2-1.0 Urine WBC 0-2 wbc/hpf 0-7 Laboratory test 10/09/2012 N[facility]N/[facility] Import Glucose 1 HR Post 171 mg/dL High 70-160 finding Prandial Hemoglobin/Hematac 10/09/2012 [facility] Import Hematocrit 37 % 35-47 rit Hemoglobin 13.0 g/dL 12.0-16.0 Urine Screen 08/18/2012 [facility] Import Urine Bilirubin - Negative Negative Dipstick Urine Blood Negative Negative Urine Clarity Clear Clear Urine Color Straw Yellow Urine Glucose - Dipstick Negative mg/dL Negative Urine Ketone Negative mg/dL Negative Urine Leuk Esterase Negative Negative Urine Nitrite - Dipstick Negative Negative Urine PH 6.0 Low 6.5-7.5 Urine Protein - Dipstick Negative mg/dL Negative Urine Specific [place] <=1.005 Low 1.010-1.030 Urine Urobilinogen - Dipstick 0.2 E.U./dL 0.2-1.0 Laboratory test 08/07/2012 [facility] Import [employer] Ref#[id number] 35 finding Profile Laboratory test 08/02/2012 N[facility]N/[facility] Import Urine HCG Positive High Negative finding (Qualitative) Urine Screen 08/02/2012 [facility] Import Urine Negative Negative Bilirubin - Dipstick Urine Blood Negative Negative Urine Clarity SL Cloudy Clear Urine Color Yellow Yellow Urine Glucose - Dipstick Negative mg/dL Negative Urine Ketone Negative mg/dL Negative Urine Leuk Esterase Negative Negative Urine Nitrite - Dipstick Negative Negative Urine PH 5.5 Low 6.5-7.5 Urine Protein - Dipstick Negative mg/dL Negative Urine Specific [place] >=1.030 1.010-1.030 Urine Urobilinogen - Dipstick 0.2 E.U./dL 0.2-1.0 Laboratory test finding 08/02/2012 [facility] Import Lipase 91 U/L 28-380 CBC 08/02/2012 [facility] Import Hematocrit 38.6 % 36.0-46.1 Hemoglobin 13.5 gm/dL 11.6-15.8 Mean Cell Volume 91.3 fl 80.9-99.0 Mean Corpuscular HGB 31.9 pg 25.9-32.7 Mean Corpuscular HGB Conc 35.0 g/dL High 30.8-34.3 Mean Platelet Volume 9.3 fL 8.9-12.4 Platelet Count 312 K/uL 155-360 Red Blood Count 4.23 M/uL 3.90-5.40 Red Cell Distri Width %CV 12.7 % 11.7-14.4 White Blood Count 11.9 K/uL High 3.1-10.7 Comprehensive Metabolic Panel 08/02/2012 [facility] Import Alb/Glob 0.9 ratio Albumin 3.1 g/dL Low 3.5-5.0 Alkaline Phosphatase 60 U/L 50-136 Anion Gap 11 mEq/L 8-16 BUN 10 mg/dL 5-23 BUN/Creat 16.6 ratio Bilirubin,Total 0.3 mg/dL 0.2-1.2 Calcium 9.1 mg/dL 8.5-10.1 Carbon Dioxide 25 mEq/L 18-29 Chloride 106 mmol/L 98-107 Creatinine 0.6 mg/dL 0.5-1.4 Globulin 3.5 g/dL 1.9-4.3 Glom Filtration Rate, Estimate >60 mL/min >60 Glucose 82 mg/dL 76-115 If >60 mL/min >60 36 Potassium 3.4 mmol/L Low 3.5-5.1 SGPT/Alt 23 U/L Low 30-65 Sgot/Ast 11 U/L Low 16-40 Sodium 139 mmol/L 136-145 Total Protein 6.6 g/dL 6.3-8.0 Laboratory test 06/25/2012 N2N/[facility] Import HCG, Quant 71764.0 mIU/mL 37 finding Urine Screen 06/25/2012 N2N/[facility] Import Urine Bilirubin Negative Negative - Dipstick Urine Blood Negative Negative Urine Clarity Clear Clear Urine Color Yellow Yellow Urine Glucose - Dipstick Negative mg/dL Negative Urine Ketone Negative mg/dL Negative Urine Leuk Esterase Negative Negative Urine Nitrite - Dipstick Negative Negative Urine PH 6.0 Low 6.5-7.5 Urine Protein - Dipstick Negative mg/dL Negative Urine Specific [place] >=1.030 1.010-1.030 Urine Urobilinogen - Dipstick 0.2 E.U./dL 0.2-1.0 Laboratory test finding 06/06/2012 N2N/CCD Import Antibody Detection See Note 38 Bas% 0.3 % 0.0-1.1 Baso # 0.03 K/uL 0.0-0.1 Eo% 0.5 % 0.0-6.6 Eos # 0.06 K/uL 0.0-0.5 Hematocrit 39.2 % 36.0-46.1 Hemoglobin 14.0 gm/dL 11.6-15.8 Hepatitis B Surface Antigen Nonreactive Nonreactive 39 Lead,Blood (Adult) 1 g/dL 0-19 40 Lymph # 2.33 K/uL 0.8-3.4 Lymph % 19.6 % 17.0-46.1 Mean Cell Volume 90.7 fl 80.9-99.0 Mean Corpuscular HGB 32.4 pg 25.9-32.7 Mean Corpuscular HGB Conc 35.7 g/dL High 30.8-34.3 Mean Platelet Volume 9.9 fL 8.9-12.4 [place] # 0.60 K/uL 0.3-0.9 [place] % 5.1 % 4.3-13.2 Neut# 8.84 K/uL High 1.0-7.0 Neut% 74.5 % High 40.4-72.8 Platelet Count 326 K/uL 155-360 Rapid Plasma Reagin Nonreactive Nonreactive 41 Red Blood Count 4.32 M/uL 3.90-5.40 Red Cell Distri Width %CV 11.9 % 11.7-14.4 Red Cell Distri Width SD 38.4 fl 3-47 Rubella IgG Antibody Reactive Reactive Urine Culture See Note 42 Varicella-Zoster Virus IgG Ab 1.67 Immune>1.09i 43 White Blood Count 11.9 K/uL High 3.1-10.7 Dna Probe N. Gono + 06/06/2012 N2N/CCD Import Dna Probe For See Note 44 C. Trach. Chlamydia Trac. Dna Probe For N. Gonorrhoeae See Note 45 Genital Culture W/ Gram 06/06/2012 N2N/CCD Import Genital Culture See Note 46 Stain Gram Stain See Note 47 Laboratory test 06/06/2012 N2N/CCD Import HPV High Risk Negative Negative 48 finding ThinPrep Pap: Cervix/Endocx See Note 49 Type And 06/06/2012 N2N/CCD Import Antibody Screen Negative Negative Screen Patient Blood Type O Pos Comp Metabolic Panel 03/16/2012 N2N/CCD Import Albumin 4.5 g/dL 3.6-5.4 Albumin/Globulin Ratio 1.7 1-3 Alkaline Phosphatase 58 U/L 30-110 Alt 18 U/L 14-54 Anion Gap 9.0 mmol/L 2-11 Ast 19 U/L 12-42 BUN/Creatinine Ratio 12.2 8-20 Blood Urea Nitrogen 11 mg/dL 6-24 Calcium 10.1 mg/dL High 8.1-9.9 Chloride 103 mmol/L 101-111 Co2 Carbon Dioxide 30.0 mmol/L 22-32 Creatinine 0.90 mg/dL 0.50-1.40 Egfr 92.7 >60 50 Egfr Non- 72.1 >60 Globulin 2.6 g/dL 2-4 Glucose 76 mg/dL 70-100 Potassium 3.9 mmol/L 3.5-5.0 Sodium 142 mmol/L 133-145 Total Bilirubin 0.5 mg/dL 0.4-1.5 Total Protein 7.1 g/dL 6.2-8.1 Lipid Profile 03/16/2012 N2N/CCD Import Cholesterol 199 mg/dL Less than (Trig/Chol/HDL) 200 Cholesterol/HDL Ratio 2.7 Average 1-4.44 HDL Cholesterol 74 mg/dL High 40-60 51 LDL Cholesterol 108.4 mg/dL High Less Than 100 52 Triglycerides 83 mg/dL 40-200 CBC Auto Diff 03/16/2012 N2N/CCD Import Abs Basophils 0.1 10^3/uL 0-0.2 Abs Eosinophils 0.1 10^3/uL 0-0.6 Abs Lymphocytes 2.3 10^3/uL 1.0-4.8 Abs Monocytes 0.5 10^3/uL 0-0.8 Abs Neutrophils 4.1 10^3/uL 1.5-7.7 Abs Nucleated RBC 0 10^3/uL Basophil % 0.7 % 0-2 Eosinophil % 1.2 % 0-6 Granulocyte % 57.6 % 38-83 Hematocrit 44 % 35-47 Hemoglobin 15.1 g/dL 12.0-16.0 Lymphocyte % 33.0 % 25-47 Mean Corpuscular HGB Conc 35 g/dL 31-36 Mean Corpuscular Hemoglobin 33 pg High 27-31 Mean Corpuscular Volume 95 fL 80-97 Mean Platelet Volume 8 um3 7.4-10.4 Monocyte % 7.5 % 1-9 Nucleated Red Blood Cells % 0 Platelet Count 257 10^3/uL 150-450 Red Blood Count 4.61 10^6/uL 4.0-5.4 Red Cell Distribution Width 13 % 10.5-15 White Blood Count 7.1 10^3/uL 4.8-10.8 Laboratory test 03/16/2012 N2N/[employer] Import TSH (Thyroid 0.70 miu/mL 0.34- 5.60 finding Stimulating Horm) Laboratory test 02/08/2012 N2N/[employer] Import Bas% 0.2 % 0.0-1.1 finding Baso # 0.02 K/uL 0.0-0.1 Eo% 0.6 % 0.0-6.6 Eos # 0.06 K/uL 0.0-0.5 Hematocrit 41.2 % 36.0-46.1 Hemoglobin 14.4 gm/dL 11.6-15.8 Lymph # 2.35 K/uL 0.8-3.4 Lymph % 24.7 % 17.0-46.1 Mean Cell Volume 92.0 fl 80.9-99.0 Mean Corpuscular HGB 32.1 pg 25.9-32.7 Mean Corpuscular HGB Conc 35.0 g/dL High 30.8-34.3 Mean Platelet Volume 10.0 fL 8.9-12.4 [place] # 0.65 K/uL 0.3-0.9 [place] % 6.8 % 4.3-13.2 Neut# 6.45 K/uL 1.0-7.0 Neut% 67.7 % 40.4-72.8 Platelet Count 275 K/uL 155-360 Red Blood Count 4.48 M/uL 3.90-5.40 Red Cell Distri Width %CV 12.0 % 11.7-14.4 Red Cell Distri Width SD 39.6 fl 3-47 Urine HCG (Qualitative) Negative Negative 53 White Blood Count 9.5 K/uL 3.1-10.7 Comprehensive Metabolic Panel 02/08/2012 N2N/CCD Import Alb/Glob 1.2 ratio Albumin 3.9 g/dL 3.5-5.0 Alkaline Phosphatase 55 U/L 50-136 Anion Gap 10 mEq/L 8-16 BUN 16 mg/dL 5-23 BUN/Creat 20.0 ratio Bilirubin,Total 0.2 mg/dL 0.2-1.2 Calcium 8.8 mg/dL 8.5-10.1 Carbon Dioxide 25 mEq/L 18-29 Chloride 110 mmol/L High 98-107 Creatinine 0.8 mg/dL 0.5-1.4 Globulin 3.3 g/dL 1.9-4.3 Glom Filtration Rate, Estimate >60 mL/min >60 Glucose 80 mg/dL 76-115 If >60 mL/min >60 54 Potassium 3.9 mmol/L 3.5-5.1 SGPT/Alt 22 U/L Low 30-65 Sgot/Ast 11 U/L Low 16-40 Sodium 141 mmol/L 136-145 Total Protein 7.2 g/dL 6.3-8.0 Urine Screen 02/08/2012 N2N/CCD Import Urine Bilirubin - Negative Negative Dipstick Urine Blood Negative Negative Urine Clarity Clear Clear Urine Color Yellow Yellow Urine Glucose - Dipstick Negative mg/dL Negative Urine Ketone Negative mg/dL Negative Urine Leuk Esterase Negative Negative Urine Nitrite - Dipstick Negative Negative Urine PH 7.0 6.5-7.5 Urine Protein - Dipstick Negative mg/dL Negative Urine Specific [place] <=1.005 Low 1.010-1.030 Urine Urobilinogen - Dipstick 0.2 E.U./dL 0.2-1.0 Laboratory test finding 11/17/2011 N2N/CCD Import Bas% 0.3 % 0.0-1.1 Baso # 0.03 K/uL 0.0-0.1 Eo% 0.5 % 0.0-6.6 Eos # 0.05 K/uL 0.0-0.5 Hematocrit 36.3 % 36.0-46.1 Hemoglobin 12.5 gm/dL 11.6-15.8 Lipase 172 U/L 28-380 Lymph # 1.86 K/uL 0.8-3.4 Lymph % 16.8 % Low 17.0-46.1 Mean Cell Volume 92.4 fl 80.9-99.0 Mean Corpuscular HGB 31.8 pg 25.9-32.7 Mean Corpuscular HGB Conc 34.4 g/dL High 30.8-34.3 Mean Platelet Volume 10.0 fL 8.9-12.4 [place] # 0.54 K/uL 0.3-0.9 [place] % 4.9 % 4.3-13.2 Neut# 8.56 K/uL High 1.0-7.0 Neut% 77.5 % High 40.4-72.8 Platelet Count 253 K/uL 155-360 Red Blood Count 3.93 M/uL 3.90-5.40 Red Cell Distri Width %CV 11.6 % Low 11.7-14.4 Red Cell Distri Width SD 38.3 fl 3-47 Urine HCG (Qualitative) Negative Negative 55 White Blood Count 11.0 K/uL High 3.1-10.7 Comprehensive Metabolic Panel 11/17/2011 N2N/CCD Import Alb/Glob 1.1 ratio Albumin 3.3 g/dL Low 3.5-5.0 Alkaline Phosphatase 36 U/L Low 50-136 Anion Gap 11 mEq/L 8-16 BUN 10 mg/dL 5-23 BUN/Creat 14.2 ratio Bilirubin,Total 0.3 mg/dL 0.2-1.2 Calcium 8.6 mg/dL 8.5-10.1 Carbon Dioxide 26 mEq/L 18-29 Chloride 105 mmol/L 98-107 Creatinine 0.7 mg/dL 0.5-1.4 Globulin 3.0 g/dL 1.9-4.3 Glom Filtration Rate, Estimate >60 mL/min >60 Glucose 84 mg/dL 76-115 If >60 mL/min >60 56 Potassium 3.8 mmol/L 3.5-5.1 SGPT/Alt 20 U/L Low 30-65 Sgot/Ast 8 U/L Low 16-40 Sodium 138 mmol/L 136-145 Total Protein 6.3 g/dL 6.3-8.0 Urine Screen 11/17/2011 N2N/CCD Import Urine Bilirubin - Negative Negative Dipstick Urine Blood Negative Negative Urine Clarity Clear Clear Urine Color Yellow Yellow Urine Glucose - Dipstick Negative mg/dL Negative Urine Ketone Negative mg/dL Negative Urine Leuk Esterase Negative Negative Urine Nitrite - Dipstick Negative Negative Urine PH 8.0 High 6.5-7.5 Urine Protein - Dipstick Negative mg/dL Negative Urine Specific [place] 1.010 1.010-1.030 Urine Urobilinogen - Dipstick 0.2 E.U./dL 0.2-1.0 1 [id number] Would you like to order Trichomonas Vaginalis RNA testing? Y 2 SEE RESULT BELOW Name: MITCHEL PEREZ : [address]: Luis Manuel Grey MD Acct: [id number] Unit: [id number] AGE: 37 Location: [facility] Re11/17/17 SEX: F Status: DEP ER SPEC: [id number] ANGELO: 11/17/17 [facility] DR: Luis Manuel Grey MD REQ: [id number] RECD: 11/17/17 STATUS: NITIN GONZALEZ DR: Gladys Thomas MD _ SOURCE: [facility] [place]: ORDERED: Sammy,Yeast DNA COMMENTS: [id number] Would you like to order Trichomonas Vaginalis RNA testing? Y Procedure Result Reported Site Gardnerella/Yeast: Vaginal DNA Final 11/18/17943 ML Organism 1 POSITIVE GARDNERELLA Organism 2 Negative Lo The presence of G. vaginalis, although suggestive, is not diagnostic for bacterial vaginosis. Results should be interpreted in conjuction with other clinical and laboratory data available. Women with vaginal discharge should be evaluated for risk factors of cervicitis and pelvic inflammatory disease, toxic shock syndrome (S.aureus), and if present, evaluated for organisms not included in this assay such as N. gonorrhoeae, C. trachomatis, Mobiluncus, Mycoplasma and/or Prevotella. Mixed infections may occur. The performance of this test on patient specimens collected during or immediately after antimicrobial therapy is unknown. The presence or absence of Lo species, or G. vaginalis cannot be used as a test for therapeutic success or failure. * ML - Main Lab . END OF REPORT DEPARTMENT OF PATHOLOGY, [address] [place] [address] Aditya Link M.D. Director [facility] # [id number] GC/Chlamydia Source?: Endocervical Trichomonas Source: Endocervical 4 It Service Technician: [id number] If is still suspected, please repeat test after 48 to 72 hours. 5 It Service Technician: [id number] SEE RESULT BELOW Name: MITCHEL PEREZ : [address]: Luis Manuel Grey MD Acct: [id number] Unit: [id number] AGE: 37 Location: [facility] Re11/17/17 SEX: F Status: DEP ER SPEC: [id number] ANGELO: 11/17/17 [facility] DR: Luis Manuel Grey MD REQ: [id number] RECD: 11/17/17 STATUS: NITIN GONZALEZ DR: [facility] Gladys Thomas MD _ SOURCE: URINE SPDESC: ORDERED: Urine Culture COMMENTS: [id number] Procedure Result Reported Site Urine Culture Final 11/18/17- 1617 ML No growth of clinically significant organisms * ML - Main Lab . END OF REPORT DEPARTMENT OF PATHOLOGY, [address] [place] [address] Aditya Link M.D. Director [facility] # [id number] 8 CP 9 0.0 - 0.045 ng/mL: Normal 0.046 - 0.5 ng/mL: Suggestive 0.6 - 1.5 ng/mL: Consistent 10 It Service Technician: [id number] QUERY: Reflex add FT3? Y QUERY: Reflex add FT4? Y 12 Note: Persistent reduction for 3 months or more in an eGFR <60 mL/min/1.73 m2 defines CKD. Patients with eGFR values >/=60 mL/min/1.73 m2 may also have CKD if evidence of persistent proteinuria is present. The original MDRD equation for estimated GFR is not valid for patients less than 18 years of age. Additional information may be found at www.kdoqi.org. 13 It Service Technician: [id number] FRANCES SILVA 14 Report may be viewed in PCI: Medical Record Forms -> LAB-BUSINESS SYSTEMS TECHNICIAN Testing referred to: [place] [facility] [address] * [place] [address] Ph.#. [phone] 15 SEE RESULT BELOW Name: MITCHEL PEREZ : [address]: Cindy Blanchard MD Acct: [id number] Unit: [id number] AGE: 34 Location: [facility] Re11/12/14 SEX: F Status: DEP ER SPEC: [id number] ANGELO: 11/12/14-833 [facility] DR: Benita Castillo NP REQ: [id number] RECD: 11/12/14 STATUS: NITIN GONZALEZ DR: Cindy Montemayor MD _ SOURCE: [facility] [place]: ORDERED: Rapid Flu A B Procedure Result Verified Site Rapid Influenza A B Antigen Final 11/12/14- 1904 ML Organism 1 Negative Influenza A B Antigen testing by enzyme immunoassay. Cell culture testing can be performed to confirm negative test results and to assist in detecting other viruses that can produce similar clinical symptoms. Please notify Microbiology Lab if further testing is desired. * ML - MAIN LAB ([facility]) . END OF REPORT * ML=Testing performed at Main Lab DEPARTMENT OF PATHOLOGY, [address] [place] [address] Aditya Link M.D. Director [facility] # [id number] 16 0.0 - 0.045 ng/mL: Normal 0.046 - 0.5 ng/mL: Suggestive 0.6 - 1.5 ng/mL: Consistent 17 Note: Persistent reduction for 3 months or more in an eGFR <60 mL/min/1.73 m2 defines CKD. Patients with eGFR values >/=60 mL/min/1.73 m2 may also have CKD if evidence of persistent proteinuria is present. The original MDRD equation for estimated GFR is not valid for patients less than 18 years of age. Additional information may be found at www.kdoqi.org. 18 Values below the stated reference ranges of AST and ALT can be seen in normal populations. Clinical correlation is suggested. 19 Acceptable specimens for this test are male urethral swab, endocervical swab and liquid based pap specimens, vaginal swabs in APTIMA transports and first void urine. See online Directory of Services for test number for rectal and pharyngeal specimens. Performed at: RN - [facility] [address] [id number] Manager Information: Shazia Yang MD, Phone: [phone] 20 CYTOLOGY SCREENER - BUSINESS SYSTEMS TECHNICIAN @ 03/27 Screened by: Erika RÍOS(ASCP) PAP: FINAL REPORT SPECIMEN ADEQUACY: SPECIMEN SATISFACTORY FOR INTERPRETATION ADEQUATE ENDOCERVICAL/TRANSFORMATION ZONE NOTED INTERPRETATION: NEGATIVE FOR INTRAEPITHELIAL LESION OR MALIGNANCY COMMENT: SHIFT IN LUZ MARINA SUGGESTIVE OF BACTERIAL VAGINOSIS THINPREP PREPARED PAP SLIDE # Prepared in the Cytology laboratory from the ThinPrep sample is 1 ThinPrep smear. PAP ACCESSI QUESTIONNAIRE 02/23 PERTINENT CLINICAL HISTORY FOR PAP (BUSINESS SYSTEMS TECHNICIAN) CYTOLOGY (Check all that apply) : ? Post ? Menopause? LMP date: 08/27/13 Last Pap: at [facility]? Abnormal Pap? Y If Yes, date: If patient had related surgical procedure: Related Therapy: Significant Clinical History: ANNUAL ===== DISCLAIMER: The Pap smear is a screening test and not a diagnostic procedure. False negative and false positive results can and do occur for a number of reasons. Regular screening provides an aid in detecting treatable cervical abnormalities, but should not be used as the only means for detecting cervical dysplasia and carcinoma. ----- Signed Electronically signed TYRONE RAMOS MD 09/28/13 1432 ----- 21 Normal Range 180 to 914 Indeterminate Range 145 to 180 Deficient Range <145 22 Because ethnic data is not always readily available, this report includes an eGFR for both -Americans and non- Americans. The National Kidney Disease Education Program (NKDEP) does not endorse the use of the MDRD equation for patients that are not between the ages of 18 and 70, are , have extremes of body size, muscle mass, or nutritional status, or are non- or non-. According to the National Kidney Foundation, irrespective of diagnosis, the stage of the disease is based on the level of kidney function: Stage Description GFR(mL/min/1.73 m(2)) 1 Kidney damage with normal or decreased GFR 90 2 Kidney damage with mild decrease in GFR 60- 89 3 Moderate decrease in GFR 30-59 4 Severe decrease in GFR 15-29 5 Kidney failure <15 (or dialysis) 23 PENDING; TEST PERFORMED ON MONDAYS AND THURSDAYS 24 Note: Persistent reduction for 3 months or more in an eGFR <60 mL/min/1.73 m2 defines CKD. Patients with eGFR values >/=60 mL/min/1.73 m2 may also have CKD if evidence of persistent proteinuria is present. The original MDRD equation for estimated GFR is not valid for patients less than 18 years of age. Additional information may be found at www.kdoqi.org. 25 #THIS URINE SPECIMEN SCREENED POSITIVE FOR ONE OF MORE DRUG CLASSES. POSITIVE FINDINGS ARE UNCONFIRMED. CONFIRMATORY TESTING IS SUGGESTED IF FINDINGS ARE UNEXPECTED. PLEASE CONTACT THE LABORATORY IF CONFIRMATORY TESTING IS DESIRED. 26 *THE SUBMITTED URINE SPECIMEN WAS SCREENED AT THE LISTED [facility] DRUG CLASS INITIAL TEST LEVEL Amphetamines 1000 ng/mL Barbiturates 200 ng/mL Benzodiazepines 200 ng/mL Cannabinoids 50 ng/mL Cocaine Metabolite 300 ng/mL Methadone 300 ng /mL Opiates 300 ng/mL 27 PENDING; TEST PERFORMED ON MONDAYS AND THURSDAYS 28 100.0750 01/08/13 LAB.[facility] E3CHO DOWN 29 Organism 1 ! BETA STREPTOCOCCUS GROUP B QUANTITY ! FROM BROTH RECOMMENDED THERAPY: ! PENICILLIN OR AMPICILLIN. 30 Acceptable specimens for this test are male urethral swab, endocervical swab and liquid based pap specimens, vaginal swabs in APTIMA transports and first void urine. See online Directory of Services for test number for rectal and pharyngeal specimens. Performed at: RN - [facility] [address] [id number] Manager Information: Shazia Yang MD, Phone: [phone] 31 Glucose, Fast 82 mg/dL 1 Hr Glucose 121 mg/dL 2 Hr Glucose 117 ng/dL 3 Hr Glucose 62 mg/dL FAST URINE GLU NEGATIVE % 1HR URINE GLU NEGATIVE % 2HR URINE GLU 1/ 4 (H) % 3HR URINE GLU NEGATIVE % FAST URINE KET NEGATIVE 1HR URINE KET NEGATIVE 2HR URINE KET NEGATIVE 3HR URINE KET NEGATIVE 32 CULTURE TO FOLLOW 33 COLONY COUNT ! >100,000 CFU/ml Organism 1 ! KLEBSIELLA PNEUMONIAE QUANTITY ! MANY Organism 2 ! URETHRAL LUZ MARINA KLEBSIELLA PNEUMONIAE Target Route Dose M.I.C. RX AB COST ------ ----- -------- ------ -- ------ NITROFURANTOIN 64 I TRIMETHOPRIM/SULFAMETHOXAZOLE <=20 S AMPICILLIN 16 R CEFAZOLIN <=4 S AMPICILLIN/SULBACTAM 4 S CIPROFLOXACIN <=0.25 S PIPERACILLIN/TAZOBACTAM <=4 S CEFTAZIDIME <=1 S CEFTRIAXONE <=1 S CEFEPIME <=1 S LEVOFLOXACIN <=0.12 S IMIPENEM <=0.25 S GENTAMICIN <=1 S TOBRAMYCIN <=1 S 34 10/18/12 LAB.MPK Deleted by Reflex Group [facility] [place] 35 FORWARDED TO REFERENCE LABORATORY. 36 Note: Persistent reduction for 3 months or more in an eGFR <60 mL/min/1.73 m2 defines CKD. Patients with eGFR values >/=60 mL/min/1.73 m2 may also have CKD if evidence of persistent proteinuria is present. The original MDRD equation for estimated GFR is not valid for patients less than 18 years of age. Additional information may be found at www.kdoqi.org. 37 Approximate Gestational Age and Total BHCG Range: 0.2 - 1 Week........................5-50 mIU/mL 1 - 2 Weeks.....................50- 500 mIU/mL 2 - 3 Weeks..................100-5,000 mIU/mL 3 - 4 Weeks.................500-10,000 mIU/mL 4 - 5 Weeks...............1,000-50, 000 mIU/mL 5 - 6 Weeks.............10,000-100,000 mIU/mL 6 - 8 Weeks.............15,000-200,000 mIU/mL 2 - 3 Months............10,000-100, 000 mIU/mL 38 No reportable results 39 HBsAg not detected; does not exclude the possibility of exposure to or early acute infections with HBV. 40 The Centers for Disease Control and Prevention states blood lead levels less than 10 ug/dL in children have been associated with numerous adverse health effects. [facility] Guidelines: Blood lead levels in the range 5-9 ug/dL have been associated with adverse health effects in children aged 6 years and younger. Environmental Exposure: WHO Recommendation <20 Occupational Exposure: OSHA Lead Std 40 Detection Limit=1 41 PENDING; TEST PERFORMED ON MONDAYS AND THURSDAYS 42 COLONY COUNT ! 40,000-50,000 CFU/ml Organism 1 ! KLEBSIELLA PNEUMONIAE QUANTITY ! MODERATE KLEBSIELLA PNEUMONIAE Target Route Dose M.I.C. RX AB COST ------ --- -- -------- ------ -- ------ NITROFURANTOIN 32 S TRIMETHOPRIM/SULFAMETHOXAZOLE <=20 S AMPICILLIN 16 R CEFAZOLIN <=4 S AMPICILLIN/SULBACTAM 4 S CIPROFLOXACIN <=0.25 S PIPERACILLIN/TAZOBACTAM <=4 S CEFTAZIDIME <=1 S CEFTRIAXONE <=1 S CEFEPIME <=1 S LEVOFLOXACIN <=0.12 S IMIPENEM <=0.25 S GENTAMICIN <=1 S TOBRAMYCIN <=1 S 43 Nonimmune <0.91 Equivocal 0.91 - 1.09 Immune >1.09 Performed at: [facility] [id number] Manager Information: Shazia Yang MD, Phone: [phone] 44 NEGATIVE FOR CHLAMYDIA TRACHOMATIS BY DNA HYBRIDIZATION ASSAY. THIS TEST IS APPROVED FOR OCULAR AND UROGENITAL SITES ONLY. 45 NEGATIVE FOR NEISSERIA GONORRHOEAE BY DNA HYBRIDIZATION ASSAY. THIS METHOD IS APPROVED FOR UROGENITAL SITES ONLY. 46 GENITAL LUZ MARINA 47 GRAM STAIN ! GRAM STAIN INDICATES NORMAL GENITAL LUZ MARINA ! FEW GR POS. BACILLI SUGGESTIVE OF LACTOBACILLUS SP. 48 This high-risk HPV test detects thirteen high-risk types (16/18/31/33/35/39/45/51/52/56/58/59/68) without differentiation. The date recorded on the requisition indicates the sample(s) received were greater than 72 hours old upon arrival in our laboratory. Performed at: [facility] [id number] Manager Information: Shazia Yang MD, Phone: [phone] 49 CYTOLOGY SCREENER - BUSINESS SYSTEMS TECHNICIAN @ 03/27 Screened by: IMELDA Mcdaniel(ASCP) PAP: FINAL REPORT SPECIMEN ADEQUACY: SPECIMEN SATISFACTORY FOR INTERPRETATION SAMPLE VIAL SENT FOR HIGH RISK HPV TEST AT DOCTOR'S REQUEST INTERPRETATION: ATYPICAL SQUAMOUS CELLS OF UNDETERMINED SIGNIFICANCE COMMENT: High Risk HPV Test: Negative ( Specimen ID [id number]). THINPREP PREPARED PAP SLIDE # Prepared in the Cytology laboratory from the ThinPrep sample is 1 ThinPrep smear. PAP ACCESSI QUESTIONNAIRE 02/23 PERTINENT CLINICAL HISTORY FOR PAP (BUSINESS SYSTEMS TECHNICIAN) CYTOLOGY (Check all that apply) : ? Y Post ? N Menopause? N LMP date: 03/29 Last Pap: at [facility]? Y Abnormal Pap? If Yes, date: If patient had related surgical procedure: What Procedure? ASCUS Related Therapy: Significant Clinical History: ===== DISCLAIMER: The Pap smear is a screening test and not a diagnostic procedure. False negative and false positive results can and do occur for a number of reasons. Regular screening provides an aid in detecting treatable cervical abnormalities, but should not be used as the only means for detecting cervical dysplasia and carcinoma. ----- TYRONE Contreras MD 06/13/12 1359 ----- 50 Because ethnic data is not always readily available, this report includes an eGFR for both -Americans and non- Americans. The National Kidney Disease Education Program (NKDEP) does not endorse the use of the MDRD equation for patients that are not between the ages of 18 and 70, are , have extremes of body size, muscle mass, or nutritional status, or are non- or non-. According to the National Kidney Foundation, irrespective of diagnosis, the stage of the disease is based on the level of kidney function: Stage Description GFR(mL/min/1.73 m(2)) 1 Kidney damage with normal or decreased GFR 90 2 Kidney damage with mild decrease in GFR 60- 89 3 Moderate decrease in GFR 30-59 4 Severe decrease in GFR 15-29 5 Kidney failure <15 (or dialysis) 51 HDL Interpretation: Undesirable: High Risk: Less than 40 MG/DL Desirable: Low Risk: Greater than 60 MG/DL 52 LDL Interpretation: Low Risk Optimal Level: LDL Less than 100 MG/DL Near or Above Optimal: LDL 100-129 MG/DL Borderline High Risk: LDL 130-159 MG/DL High Risk : LDL 160-189 MG/DL Very High Risk: LDL Greater than 189 MG/DL 53 FIRST MORNING SPECIMENS GENERALLY CONTAIN THE HIGHEST CONCENTRATION OF HCG AND ARE RECOMMENDED FOR EARLY DETECTION OF . 54 Note: Persistent reduction for 3 months or more in an eGFR <60 mL/min/1.73 m2 defines CKD. Patients with eGFR values >/=60 mL/min/1.73 m2 may also have CKD if evidence of persistent proteinuria is present. The original MDRD equation for estimated GFR is not valid for patients less than 18 years of age. Additional information may be found at www.kdoqi.org. 55 FIRST MORNING SPECIMENS GENERALLY CONTAIN THE HIGHEST CONCENTRATION OF HCG AND ARE RECOMMENDED FOR EARLY DETECTION OF . 56 Note: Persistent reduction for 3 months or more in an eGFR <60 mL/min/1.73 m2 defines CKD. Patients with eGFR values >/=60 mL/min/1.73 m2 may also have CKD if evidence of persistent proteinuria is present. The original MDRD equation for estimated GFR is not valid for patients less than 18 years of age. Additional information may be found at www.kdoqi.org. Procedures Date Code Description Status 04/25/2018 88262 Brief Emotional/Behav Assessment W/ Scoring Doc Per Completed Standard [facility] 03/28/2018 43416 Brief Emotional/Behav Assessment W/ Scoring Doc Per Completed Standard [facility] 02/24/2018 93176 Brief Emotional/Behav Assessment W/ Scoring Doc Per Completed Standard [facility] 01/14/2015 97034 Theraputic Or Diagnostic Injection Completed 02/22/2013 25003 Post- Care Only Completed 01/08/2013 43395 Vaginal Delivery [facility] Care Completed 01/08/2013 61658 Anesthesia,Neuraxial Labor Completed 01/01/2013 37949 Antepartum 7 Or More Total Office Visit Completed 12/25/2012 17667 Antepartum 7 Or More Total Office Visit Completed 12/18/2012 62159 Antepartum 7 Or More Total Office Visit Completed 12/11/2012 52009 Antepartum 7 Or More Total Office Visit Completed 12/04/2012 61263 Antepartum 7 Or More Total Office Visit Completed 11/20/2012 52342 Antepartum 7 Or More Total Office Visit Completed 11/13/2012 52471 Antepartum 7 Or More Total Office Visit Completed 10/30/2012 46718 Antepartum 7 Or More Total Office Visit Completed 10/09/2012 44977 Antepartum 7 Or More Total Office Visit Completed 09/26/2012 00757 Antepartum 7 Or More Total Office Visit Completed 09/06/2012 92469 Antepartum 7 Or More Total Office Visit Completed 08/07/2012 30600 Antepartum 7 Or More Total Office Visit Completed 07/06/2012 05213 Antepartum 7 Or More Total Office Visit Completed 06/06/2012 92430 Antepartum 7 Or More Total Office Visit Completed 06/01/2010 37387 Radiology, Knee 3 Views Completed 10/06/2009 03467 Cryocautery Of Cervix Completed 09/17/2009 94933 Colposcopy With Biopsy Completed 07/23/2009 95362 Colposcopy With Biopsy Completed 09/26/2008 07016 Colposcopy With Biopsy Completed Encounters Type Date Location Provider Dx Diagnosis Office Visit 04/25/2018 Family Kimberlee Cummings, F41.1 Generalized anxiety 4:30p [address] PNP-BC, [employer], disorder Ibclc Office Visit 03/28/2018 [facility] Kimberlee Cummings, F41.1 Generalized anxiety 4:00p [address] [place] PNP-BC, [employer], disorder Ibclc Office Visit 02/24/2018 Family Louise Shane PA F43.0 Acute stress 1:15p [address] reaction N83.292 Other ovarian cyst, left side R51 Headache Z71.6 Tobacco abuse counseling Office Visit 10/07/2017 3:15p Family Louise Shane F43.0 Acute stress Victorino BENTLEY PA reaction Z72.0 Tobacco use Office Visit 05/06/2017 10:45a Family Gladys Mclaughlin F43.0 Acute stress [address] [place] Roman reaction J01.90 Acute sinusitis, unspecified Office Visit 01/26/2017 11:15a Family Medicine Gladys Thomas F43.0 Acute stress [address] [place] MGustavoDGustavo reaction J06.9 Acute upper respiratory infection, unspecified Office Visit 08/10/2016 3:45p Family Kimberlee Cummings, D22.[address] PNP-BC, [employer], of right upper Ibclc limb, including shoulder Office Visit 07/28/2016 3:30p Family Gladys Mclaughlin F43.0 Acute stress [address] [place] M.DGustavo reaction Office Visit 04/07/2016 11:15a Family Medicine Martha, Gladys, F43.0 Acute stress Victorino BENTLEY M.D. reaction K59.00 Constipation, unspecified Office Visit 03/04/2016 2:30p Family Medicine Gladys Thomas F43.0 Acute stress Victorino BENTLEY M.D. 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 Z01.411 Encntr for manager gyn Victorino RD exam (general) (routine) w abnormal findings J30.9 Allergic rhinitis, unspecified Office Visit 01/16/2015 9:00a [facility] Medicine Gladys Thomas, Z11.1 Encounter for Victorino BENTLEY M.D. screening for respiratory tuberculosis Office Visit 01/14/2015 10:00a [facility] Medicine Glayds Thomas, Z00.01 Encounter for Victorino BENTLEY M.D. general adult medical exam w abnormal findings J06.9 Acute upper respiratory infection, unspecified Z11.1 Encounter for screening for respiratory tuberculosis Office Visit 12/11/2010 2:00p [facility] Miko Martinez, 620.2 Ovarian Cyst Other & M.D. 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 2:30p Office MD Antoine, FACS Patella 717.7 Chondromalacia Of Patella 718.36 Dislocation Recurrent Lower Leg 718.36 Dislocation Recurrent Lower Leg Office Visit 06/01/2010 8:30a Orthopaedic Office Luis Manuel Farooq 719.46 Pain Joint MD Antoine, FACS Lower Leg 717.7 Chondromalacia Of Patella 718.36 Dislocation Recurrent Lower Leg Office Visit 05/01/2010 9:00a Orthopaedic Luis Manuel Farooq 718.36 Dislocation Office MD Antoine, FACS Recurrent Lower Leg 719.46 Pain Joint Lower Leg 718.86 Derangement Joint Other Not Elsewhere Class Lower Leg Office Visit 10/24/2007 1:15p Feliciano Medrano, 844.8 Sprains & Karoline Medrano. Feliciano Blank, DO Strains Knee & Leg Other Spec Sites Plan of Treatment Future Appointment(s):07/25/2018 4:30 pm - Kimberlee Tenorio PNP-JOCELYN, [employer], Ibclc at [facility] RD04/25/2018 - Kimberlee Tenorio PNP-BC, [employer], CmhedZ74.1 Generalized anxiety disorderNew Medication:Trazodone HCL 50 mg - 1-2 by mouth every night at bedtime as neededComments:although there isn't much change in your scores, I'm glad you are feeling better and more like yourself. if something changes before your next appt. just call as there are many things we can do to help further.your Adult ADHD questionnaire is inconclusive however seeing you off your other medicationsI feel strongly that you do have ADHD. if the lack of focus becomes an issue please let me know.Follow up:3 months
[2018-05-20 18:04] VITALS: BP 117/76
--- NOTE | 2018-05-20 18:14 | UC ---
Lower Extremity/Ankle HPI - HPI Summary HPI Summary: LEFT KNEE INJURY . TODAY WHILE IN A BOUNCE HOUSE PaTient TWISTED HER KNEE. FELT A "POP". HAS HAD LEFT KNEE INJURIES IN THE SAME KNEE. ankle is also painful, it is starting to bruise and is numb - History of Current Complaint Chief Complaint: UCLowerExtremity Stated Complaint: LEFT KNEE/ANKLE INJURY Time Seen by Provider: 05/20/18 18:07 Hx Obtained From: Patient Hx Last Menstrual Period: 04/23/18 ?: No Onset/Duration: Sudden Onset, Lasting Hours Severity Initially: Severe Severity Currently: Severe Pain Intensity: 9 Aggravating Factor(s): Standing, Ambulation Alleviating Factor(s): Nothing Able to Bear Weight: Yes - Allergies/Home Medications Allergies/Adverse Reactions: Allergies Allergy/AdvReac Type Severity Reaction Status Date / Time Penicillins AdvReac "Doesn't Verified 05/20/18 17:54 work on me..." Home Medications: Home Medications ALPRAZolam [Xanax] 0.5 mg PO DAILY PRN 05/20/18 [History Confirmed 05/20/18] Ibuprofen TAB* [Motrin TAB*] 600 mg PO QID PRN 05/20/18 [History] PMH/Surg Hx/FS Hx/Imm Hx Previously Healthy: Yes - Surgical History Surgical History: None - Family History Known Family History: Positive: Hypertension Negative: Diabetes - Social History Alcohol Use: Occasionally Substance Use Type: None Substance Use Comment - Amount & Last Used: Weekly & 11/11/17 Smoking Status (MU): Heavy Every Day Tobacco Smoker Type: Cigarettes Amount Used/How Often: 1/2 PPD Length of Time of Smoking/Using Tobacco: Since Age 17 Have You Smoked in the Last Year: Yes Household Exposure Type: Cigarettes - Immunization History Most Recent Influenza Vaccination: September 2016 Review of Systems All Other Systems Reviewed And Are Negative: Yes Constitutional: Positive: Negative Skin: Positive: Bruising Eyes: Positive: Negative ENT: Positive: Negative Respiratory: Positive: Negative Cardiovascular: Positive: Negative Gastrointestinal: Positive: Negative Genitourinary: Positive: Negative Motor: Positive: Negative Neurovascular: Positive: Negative Musculoskeletal: Positive: Arthralgia, Decreased ROM, Myalgia Neurological: Positive: Negative Psychological: Positive: Negative Is Patient Immunocompromised?: No Physical Exam Triage Information Reviewed: Yes Appearance: Well-Appearing, Well-Nourished, Pain Distress Vital Signs: Initial Vital Signs Temp 98.2 F 05/20/18 17:56 Pulse 65 05/20/18 17:56 Resp 18 05/20/18 17:56 BP 117/76 05/20/18 17:56 Pulse Ox 99 05/20/18 17:56 Vital Signs Reviewed: Yes Eye Exam: Normal ENT Exam: Normal ENT: Positive: Pharyngeal erythema, TMs normal Dental Exam: Normal Neck exam: Normal Respiratory Exam: Normal Cardiovascular Exam: Normal Abdominal Exam: Normal Musculoskeletal: Positive: Strength Limited @ - had to bear weight, ROM Limited @ - due to pain in knee FLX and ankle Plantar and dorsi flexion, INV and EVR Neurological Exam: Normal Psychological Exam: Normal Skin Exam: Normal Lower Extremity Course/Dx - Course Course Of Treatment: hx obtained, exam performed ,meds reviewed, xrays obtained, no fracture notedand ice applied. Knee and ankle amena wraps applied, knee immobilizer placed and recommend follow up with orthpedics. - Differential Dx/Diagnosis Differential Diagnosis/HQI/PQRI: Contusion, Fracture (Closed), Sprain, Strain Provider Diagnosis: Knee pain, acute, Moderate left ankle sprain Discharge - Sign-Out/Discharge Documenting (check all that apply): Patient Departure All imaging exams completed and their final reports reviewed: No - Discharge Plan Condition: Stable Disposition: HOME Referrals: Kimberlee Tenorio NP [Primary Care Provider] - - Billing Disposition and Condition Condition: STABLE Disposition: Home
--- NOTE | 2018-05-21 08:59 | UC ---
- EKG/XRAY/CT Xray Comments: wet read correct Course/Dx - Diagnoses Provider Diagnoses: Knee pain, acute, Moderate left ankle sprain Discharge - Sign-Out/Discharge Documenting (check all that apply): Post-Discharge Follow Up All imaging exams completed and their final reports reviewed: Yes - Discharge Plan Condition: Stable Disposition: HOME Patient Education Materials: Ankle Sprain (ED), Knee Pain (ED) Forms: *Work Release Referrals: Kimberlee Tenorio NP [Primary Care Provider] - Additional Instructions: 1. follow up with Dr Gamboa office first thing on tuesday 2. Ibuprofen for pain 3. rest, ice, compress with the amena wrap. - Billing Disposition and Condition Condition: STABLE Disposition: Home
== END 2018-05-20 19:09 | disposition home or self-care (01) ==
LOC: UCCORT 16:58
DX: S93.402A Sprain of unspecified ligament of left ankle, initial encounter (principal); M25.562 Pain in left knee; F17.210 Nicotine dependence, cigarettes, uncomplicated; Z88.0 Allergy status to penicillin; X50.0XXA Overexertion from strenuous movement or load, initial encounter; Y92.89 Other specified places as the place of occurrence of the external cause
CPT/HCPCS: 99213; G0463

== ENCOUNTER 2018-11-14 08:28 | Emergency (ER) | payer OTHER ==
[2018-11-14 08:44] VITALS: BP 112/78
--- NOTE | 2018-11-14 09:00 | UC ---
Shoulder Pain HPI - HPI Summary HPI Summary: right shoulder pain x 3 days pain is 4 out of 10 , radiation to neck and right arm nothing is making it better, worse with sitting, lying down no known injury + numbness and tingling of the right arm - History of Current Complaint Chief Complaint: UCUpperExtremity Stated Complaint: RIGHT SHOULDER/NECK PAIN Time Seen by Provider: 11/14/18 08:42 Hx Obtained From: Patient Hx Last Menstrual Period: 04/23/18 ?: No Onset/Duration: Gradual Onset, Lasting Days - 3, Still Present Timing: Constant Severity Initially: Moderate Severity Currently: Moderate Pain Intensity: 4 Character: Dull, Aching, Spasmodic Aggravating Factor(s): Movement, Lifting, Flexion, External Rotation, Abduction Alleviating Factor(s): Nothing Associated Signs And Symptoms: Positive: Weakness, Numbness/Tingling. Negative : Swelling, Redness, Bruising, Fever - Allergies/Home Medications Allergies/Adverse Reactions: Allergies Allergy/AdvReac Type Severity Reaction Status Date / Time Penicillins AdvReac "Doesn't Verified 11/14/18 08:44 work on me..." PMH/Surg Hx/FS Hx/Imm Hx Psychological History: Anxiety - Surgical History Surgical History: None Surgery Procedure, Year, and Place: DENIES - Family History Known Family History: Positive: Hypertension Negative: Diabetes - Social History Alcohol Use: Occasionally Substance Use Type: None Substance Use Comment - Amount & Last Used: randomly Smoking Status (MU): Light Every Day Tobacco Smoker Type: Cigarettes Amount Used/How Often: 1/2 PPD Length of Time of Smoking/Using Tobacco: Since Age 17 Have You Smoked in the Last Year: Yes Household Exposure Type: Cigarettes - Immunization History Most Recent Influenza Vaccination: September 2016 Review of Systems All Other Systems Reviewed And Are Negative: Yes Constitutional: Positive: Negative Skin: Positive: Negative Eyes: Positive: Negative ENT: Positive: Negative Respiratory: Positive: Negative Is Patient Immunocompromised?: No Physical Exam Triage Information Reviewed: Yes Appearance: Well-Appearing, No Pain Distress, Well-Nourished Vital Signs: Initial Vital Signs Temp 98.7 F 11/14/18 08:39 Pulse 75 11/14/18 08:39 Resp 18 11/14/18 08:39 BP 112/78 11/14/18 08:39 Pulse Ox 100 11/14/18 08:39 Vital Signs Reviewed: Yes Eye Exam: Normal Eyes: Positive: Conjunctiva Clear ENT: Positive: Normal ENT inspection, Hearing grossly normal, Pharynx normal Neck: Positive: Supple, Nontender, No Lymphadenopathy Respiratory: Positive: Chest non-tender, Lungs clear, Normal breath sounds Cardiovascular: Positive: RRR, No Murmur, Pulses Normal Musculoskeletal: Positive: Other: - right shoulder: + diffuse tenderness, pain with abduction and extension , limited strength Shoulder Course/Dx - Differential Dx/Diagnosis Provider Diagnosis: Thoracic outlet syndrome Discharge ED - Sign-Out/Discharge Documenting (check all that apply): Patient Departure All imaging exams completed and their final reports reviewed: No Studies - Discharge Plan Condition: Stable Disposition: HOME Prescriptions: predniSONE TAB* [Deltasone 20 MG TAB*] 40 mg PO DAILY #10 tab Patient Education Materials: Thoracic Outlet Syndrome (ED) Referrals: Kimberlee Tenorio NP [Primary Care Provider] - 7 Days - Billing Disposition and Condition Condition: STABLE Disposition: Home
== END 2018-11-14 09:03 | disposition home or self-care (01) ==
LOC: UCCORT 08:28
DX: G54.0 Brachial plexus disorders (principal); F17.210 Nicotine dependence, cigarettes, uncomplicated; Z88.0 Allergy status to penicillin
CPT/HCPCS: 99212; G0463